=== PATIENT | male | born 1975 | race Caucasian/White ===

== ENCOUNTER 2016-08-13 23:12 | Emergency (ER) | payer BC, OTHER ==
[2016-08-13 23:20] VITALS: TEMP 97.7; BMI 33.2
--- NOTE | 2016-08-13 23:25 | PDOC ---
History of Present Illness - General Chief Complaint: Pain Stated Complaint: LT ARM PAIN Past History - Past Medical History Allergies/Adverse Reactions: Allergies Allergy/AdvReac Type Severity Reaction Status Date / Time No Known Allergies Allergy Unverified 08/13/16 23:18 Home Medications: Ambulatory Orders NK [No Known Home Medication] 08/13/16 - Psycho/Social/Smoking Cessation Hx Suicidal Ideation: No Smoking History: Never smoked Review of Systems - Review of Systems Constitutional: No: Symptoms Reported, See HPI, Chills, Diaphoresis, Fever, Loss of Appetite, Malaise, Night Sweats, Weakness, Weight Stable, Unintentional Wgt. Loss, Unexplained wgt Loss, Other HEENTM: No: Symptoms Reported, See HPI, Eye Pain, Blurred Vision, Tearing, Recent change in vision, Double Vision, Cataracts, Ear Pain, Ocular Prothesis, Ear Discharge, Nose Pain, Nose Congestion, Tinnitus, Nose Bleeding, Hearing Loss , Throat Pain, Throat Swelling, Mouth Pain, Dental Problems, Difficulty Swallowing, Mouth Swelling, Other Respiratory: No: Symptoms reported, See HPI, Cough, Orthopnea, Shortness of Breath, SOB with Exertion, SOB at Rest, Stridor, Wheezing, Productive cough, Hemoptysis, Other Cardiac (ROS): No: Symptoms Reported, See HPI, Chest Pain, Edema, Irregular Heart Rate, Lightheadedness, Palpitations, Syncope, Chest Tightness, Other ABD/GI: Yes: Indigestion. No: Symptoms Reported, See HPI, Abdominal Distended, Abd. Pain w/ defecation, Blood Streaked Bowels, Constipated, Diarrhea, Difficulty Swallowing, Nausea, Poor Appetite, Poor Fluid Intake, Rectal Bleeding , Vomiting, Abdominal cramping, Tarry Stools, Other : No: Symptoms Reported, See HPI, Burning, Dysuria, Discharge, Frequency, Flank Pain, Hematuria, Incontinence, Pain, Urgency, Testicular Mass, Testicular Swelling, Lesions, Testicular Pain, Other Musculoskeletal: Yes: Muscle Pain. No: Symptoms Reported, See HPI, Back Pain, Gout, Joint Pain, Joint Swelling (left arm pain), Muscle Weakness, Neck Pain, Joint Stiffness, Other Integumentary: No: Symptoms Reported, See HPI, Bruising, Change in Color, Change in Hair/Nails, Dryness, Erythema, Flushing, Lesions, Lumps, Pallor, Pruritus, Rash, Sweating, Other Neurological: No: Symptoms reported, See HPI, Headache, Numbness, Paresthesia, Pre-Existing Deficit, Seizure, Tingling, Tremors, Weakness, Unsteady Gait, Ataxia, Dizziness, Other *Physical Exam - Vital Signs Last Vital Signs Temp Pulse Resp BP Pulse Ox 97.7 F 53 L 16 139/73 97 08/13/16 23:18 08/13/16 23:18 08/13/16 23:18 08/13/16 23:18 08/13/16 23:18 - Physical Exam General Appearance: Yes: Nourished, Appropriately Dressed. No: Apparent Distress, Disheveled, Mild Distress, Moderate Distress, Severe Distress, Alcohol on Breath, Intoxicated, Cachetic, Obese, Thin, Other HEENT: positive: EOMI, JT, Normal ENT Inspection, Normal Voice, TMs Normal, Pharynx Normal. negative: Symmetrical, Pale Conjunctivae, Photophobia, Scleral Icterus (R), Scleral Icterus (L), Muffled/Hoarse voice, Pharyngeal Erythema, Tonsillar Exudate, Tonsillar Erythema, Nasal Congestion, Rhinorrhea, Sinus Tenderness, Orbits, Hearing Decreased, Hearing Grossly Normal, TM Bulging, TM Dull, TM Erythema, Lesions, Herron, Excessive drooling, Thrush, Other Neck: positive: Trachea midline, Normal Thyroid, Supple. negative: Tender, Rigid, Carotid bruit, Decreased range of motion, Stridor, Lymphadenopathy (R), Lymphadenopathy (L), Rigidity, Tender lateral, Tender midline, Thyromegaly, Other Respiratory/Chest: positive: Normal Breath Sounds. negative: Chest Tender, Lungs Clear, Respiratory Distress, Accessory Muscle Use, Labored Respiration, Rapid RR, Decreased Breath Sounds, Paradoxal Breathing, Crackles, Rales, Rhonchi , Stridor, Wheezing, Hyperresonant, Dullness, Plerual Rub, Other Cardiovascular: positive: Regular Rhythm, Regular Rate, S1, S2, Other (mitral valve prolapse; occasional split S2). negative: Edema, JVD, Murmur, Bradycardia , Tachycardia, Diastolic Murmur, Systolic Murmur, Gallop/S3, Gallop/S4, Irregularly Irregular, Irregular Gastrointestinal/Abdominal: positive: Normal Bowel Sounds, Soft. negative: Tender, Flat, Organomegaly, Pulsatile Mass, Increased Bowel Sounds, Decreased BS , Protuberent, Distended, Guarding, Rebound, Tenderness, Hernia, Mass, Hepatomegaly, Spleenomegaly, Other Musculoskeletal: positive: Normal Inspection. negative: CVA Tenderness, CVA Tenderness (R), CVA Tenderness (L), Decreased Range of Motion, Muscle Spasm, Vertebral Tenderness, Other Extremity: positive: Normal Capillary Refill, Normal Inspection, Normal Range of Motion. negative: Tender, Pelvis Stable, Coldness, Cyanosis, Delayed Capillary Refill, Pedal Edema, Swelling, Calf Tenderness, Erythema, Inflammation , Other Heart Score/ECG Review - History History: Slightly suspicious - Electrocardiogram EKG: Non specific repolarization disturbance - Age Age: </= 46 - Risk Factors Risk Factors Heart Score: Yes Positive family hx of cardiac disease Based on the list above the patient has:: 1-2 risk factors - Troponin Troponin: </= normal limit - Score Heart Score - Total: 2 - ECG Intrepretation Rhythm: Regular Rhythm ED Treatment Course - LABORATORY CBC & Chemistry Diagram: 08/13/16 23:23 08/13/16 23:23 - RADIOLOGY Radiology Studies Ordered: Category Date Time Status CHEST PA & LAT [RAD] Stat Radiology 08/13/16 23:19 Ordered Medical Decision Making - Medical Decision Making 08/14/16 00:11 Pt comes with left arm pain; atypical story; however he has flipped T waves in II and flattened T waves in avF. Pt also has an elevated CPK. He will be treated with aspirin and he will have a 2nd cardiac enzyme at 5AM. He has no risk factors for ACS; only cardiac risk factor at this time is his fam hx of CAD. If 2nd enzyme is normal, he will be discharged home. Follow with cardiology as an outpatient. Pt will also have a UTOX done at thie time. 08/14/16 01:15 UTOX pending. Pt given baby asa. 08/14/16 03:58 UTOX negative; pt is sleeping comfortably 08/14/16 05:53 EKG #2 is the same as the first EKG. 08/14/16 06:07 2nd cardiac enzyme is normal/improving. Pt will be discharged home as atypical CP. *DC/Admit/Observation/Transfer Diagnosis at time of Disposition: Atypical chest pain - Discharge Dispostion Disposition: HOME Condition at time of disposition: Stable Admit: No - Referrals Referrals: Magno Villela MD [Staff Physician] - - Patient Instructions Printed Discharge Instructions: DI for Atypical Chest Pain
[2016-08-13 23:36] LABS: BASOPHIL 1.2 % (0-2.0); EOSINOPHIL 3.9 % (0-4.5); MCH 30.3 pg (25.7-33.7); MCHC 34.1 g/dl (32.0-35.9); MEAN CELL VOLUME 88.8 fl (80-96); MEAN PLT VOLUME 8.3 fl (7.5-11.1); NEUTROPHILS 44.6 % (42.8-82.8); PLATELET COUNT 233 K/MM3 (134-434); RDW 12.6 % (11.9-15.9); WHITE BLOOD COUNT 6.8 K/mm3 (4.0-10.8)
[2016-08-13 23:51] LABS: CPK(DFH) 675 IU/L (38-174)
[2016-08-13 23:52] LABS: ALK PHOS 37 U/L (32-92); ANION GAP 8 (8-16); BILIRUBIN,TOTAL 0.8 mg/dl (0.2-1.0); CO2 26 mmol/L (22-28); COCKROFT - GAULT 157.49; CREATININE 0.9 mg/dl (0.6-1.3); GLUCOSE,RANDOM 116 mg/dl (74-106); SGOT/AST 33 U/L (10-42); SGPT/ALT 36 U/L (10-40); TOT PROT 6.3 g/dl (6.4-8.3)
[2016-08-13 23:58] LABS: TROPONIN I (DFP) < 0.03 ng/ml (0.03-0.50)
[2016-08-14] MEDS ORDERED: ASPIRIN 81 MG CHEWABLE TABLETS PO ONE (00:10)
[2016-08-14] MEDS ORDERED: ASPIRIN 81 MG CHEWABLE TABLETS ONE (00:11)
[2016-08-14 01:43] LABS: URINE MARIJUANA THC NEGATIVE ng/ml (CUTOFF=50)
[2016-08-14 04:49] VITALS: BP 119/73; PULSE 58
[2016-08-14 05:56] LABS: TROPONIN I 0.02 ng/ml (0.00-0.05)
--- NOTE | 2016-08-14 08:08 | EKG ---
Test Reason : Blood Pressure : / mmHG Vent. Rate : 054 BPM Atrial Rate : 054 BPM P-R Int : 170 ms QRS Dur : 096 ms QT Int : 438 ms P-R-T Axes : 043 -14 000 degrees QTc Int : 415 ms SINUS BRADYCARDIA WITH SINUS ARRHYTHMIA VOLTAGE CRITERIA FOR LEFT VENTRICULAR HYPERTROPHY ABNORMAL ECG NO PREVIOUS ECGS AVAILABLE Confirmed by SUDARSHAN SPEARS MD ([id number]) on 08/14/2016 8:07:46 AM Referred By: NATASHA Confirmed By:SUDARSHAN SPEARS MD
--- NOTE | 2016-08-14 15:42 | EKG ---
Test Reason : Blood Pressure : / mmHG Vent. Rate : 051 BPM Atrial Rate : 051 BPM P-R Int : 162 ms QRS Dur : 098 ms QT Int : 440 ms P-R-T Axes : 026 -20 -17 degrees QTc Int : 405 ms SINUS BRADYCARDIA MODERATE VOLTAGE CRITERIA FOR LVH, MAY BE NORMAL VARIANT NONSPECIFIC T WAVE ABNORMALITY BORDERLINE ECG WHEN COMPARED WITH ECG OF 13-AUG-2016 23:18, NO SIGNIFICANT CHANGE WAS FOUND Confirmed by REGAN HERNANDEZ, SUDARSHAN ([id number]) on 08/14/2016 3:42:47 PM Referred By: NATASHA Confirmed By:SUDARSHAN SPEARS MD
== END 2016-08-14 06:47 | disposition home or self-care (01) ==
LOC: FER 23:12
DX: R07.89 Other chest pain (principal); Z82.49 Family history of ischemic heart disease and other diseases of the circulatory system
CPT/HCPCS: 36415; 71020-TC; 80053; 80307; 82550; 82553; 83690; 84484; 85025; 93005; 99283-25